=== PATIENT | female | born 2000 | race Caucasian/White ===

== ENCOUNTER → 2021-11-06 13:15 | Observation (INO) ==
[2021-11-06 11:54] LABS: Bilirubin,Urine Negative (Negative); Blood,Urine Small (Negative); Clarity,Urine Turbid (Clear); Color,Urine Yellow (Yellow); Glucose,Urine (UA) Normal (Normal); Ketones,Urine Negative (Negative); Leukocyte Esterase,Urine Large (Negative); Nitrite,Urine Negative (Negative); PH,Urine 6.5 pH Units (5.0-8.0); Protein,Urine 200 mg/dL (Neg-Trace); Specific Gravity,Urine 1.014 (1.010-1.025); Urobilinogen,Urine Normal (Normal)
[2021-11-06 12:03] LABS: Squamous Epithelial Cell,Urine Few per hpf (None-Few)
[2021-11-06 12:05] LABS: Bacteria,Urine Few per hpf (None-Few); WBC,Urine 50-100 per hpf (0-3)
[2021-11-07 06:33] LABS: Amphetamine Screen,Urine Negative ng/mL (Cutoff=1000); Barbiturate Screen,Urine Negative ng/mL (Cutoff=200)
[2021-11-07 06:34] LABS: Benzodiazepines Screen,Urine Negative ng/mL (Cutoff=300); Cannabinoid Screen,Urine Positive ng/mL (Cutoff = 50); Cocaine Screen,Urine Negative ng/mL (Cutoff= 300); Opiate Screen,Urine Negative ng/mL (Cutoff=300); Phencyclidine Screen,Urine Negative ng/mL (Cutoff=25)
== END | disposition home or self-care (01) ==
LOC: 1NENULAB
PROVIDERS: ADMIT Advanced Practice Midwife; ATTEND Advanced Practice Midwife

== ENCOUNTER 2022-03-17 18:17 | Inpatient (IN) ==
[~2022-03-17 18:17] MED LIST: Azithromycin 500 MG in 0.9 % Sodium Chloride 250 ML IVPB PRN; CeFAZolin 2,000 MG/120 ML BAG IVPB ONE; Famotidine 20 MG/2 ML VIAL IVP ONE; Metoclopramide 10 MG/2 ML VIAL IVP ONE; OXYTOCIN/RINGERS LACTATE 10 UNIT/166.6 ML BAG IVC ONE; Ringers Solution, Lactated 1,000 ML IVC SCH
[2022-03-17] MEDS ORDERED: Oxytocin 30 UNIT/503 ML BAG IVC SCH (18:30)
[2022-03-17 19:42] LABS: Basophils % 0.4 %; Eosinophils % 0.3 %; Hematocrit 37.6 % (35.3-44.9); Hemoglobin 12.2 g/dL (11.5-15.4); Immature Granulocytes % 2.1 % (0-4); Lymphocytes # 1.7 K/mcL (0.6-4.6); Lymphocytes % 15.7 %; Mean Corpuscular HGB Conc 32.4 g/dL (31.6-35.5); Mean Corpuscular Hemoglobin 30.5 pg (28.0-33.3); Mean Platelet Volume 10.1 fL (9.4-12.4); Monocytes # 0.6 K/mcL (0.0-1.3); Monocytes % 5.5 %; Neutrophils # 8.5 K/mcL (1.6-8.9); Platelet Count 192 K/mcL (140-400); White Blood Count 11.1 K/mcL (4.3-11.1)
[2022-03-17 20:21] LABS: Amphetamine Screen,Urine Negative ng/mL (Cutoff=1000); Barbiturate Screen,Urine Negative ng/mL (Cutoff=200); Benzodiazepines Screen,Urine Negative ng/mL (Cutoff=200); Cannabinoid Screen,Urine Positive ng/mL (Cutoff = 50); Cocaine Screen,Urine Negative ng/mL (Cutoff= 300); Opiate Screen,Urine Negative ng/mL (Cutoff=300); Phencyclidine Screen,Urine Negative ng/mL (Cutoff=25)
[2022-03-17] MEDS ORDERED: *HR* HYDROmorphone PF 0.5 MG/0.5 ML SYRINGE IVP PRN (20:43)
[2022-03-17] MEDS ORDERED: Naloxone 0.4 MG/ML INJ IVP PRN (20:43)
[2022-03-17] MEDS ORDERED: Promethazine 6.25 MG in Water for inj. (sterile) 20 ML IVPB PRN (20:43)
[2022-03-17] MEDS ORDERED: *HR* Nalbuphine 10 MG/ML AMPUL IV PRN (20:45)
[2022-03-17] MEDS ORDERED: *HR* FentaNYL (PF) 100 MCG/2 ML VIAL ONE (20:51)
[2022-03-17] MEDS ORDERED: Ondansetron 4 MG/2 ML VIAL ONE (20:51)
[2022-03-17] MEDS ORDERED: *HR* Phenylephrine 10 MG/ML VIAL ONE (20:51)
[2022-03-17] MEDS ORDERED: *HR* Morphine Sulfate/PF 10 MG/10 ML AMPUL ONE (20:51)
[2022-03-17] MEDS ORDERED: Ringers Solution, Lactated 1,000 ML ONE (21:22)
[2022-03-17] MEDS ORDERED: Acetaminophen IV 1,000 MG/100 ML BAG IVPB ONE (21:50)
[2022-03-17] MEDS ORDERED: Ketorolac 30 MG/ML VIAL ONE (22:03)
[2022-03-18] MEDS ORDERED: Ondansetron 4 MG/2 ML VIAL IVP PRN (00:58)
[2022-03-18] MEDS ORDERED: *HR* OxyCODONE Immed Rel 5 MG TABLET PO PRN (00:58)
[2022-03-18] MEDS ORDERED: Simethicone 80 MG TAB.CHEW PO PRN (00:58)
[2022-03-18] MEDS ORDERED: Oxytocin 30 UNIT/503 ML BAG IVC SCH (00:58)
[2022-03-18] MEDS ORDERED: Metoclopramide 10 MG/2 ML VIAL IVP PRN (00:58)
[2022-03-18] MEDS ORDERED: Ringers Solution, Lactated 1,000 ML IVC SCH (00:58)
[2022-03-18] MEDS: Ibuprofen 600 MG TABLET PO SCH ×3 (01:25→09:18)
[2022-03-18] MEDS: Acetaminophen 325 MG TABLET PO SCH ×3 (01:25→09:19)
[2022-03-18 06:15] LABS: Basophils # 0.1 K/mcL (0.0-0.2); Basophils % 0.3 %; Eosinophils % 0.3 %; Hematocrit 34.6 % (35.3-44.9); Immature Granulocytes % 1.3 % (0-4); Lymphocytes # 2.3 K/mcL (0.6-4.6); Lymphocytes % 14.9 %; Mean Corpuscular HGB Conc 31.8 g/dL (31.6-35.5); Mean Corpuscular Hemoglobin 30.2 pg (28.0-33.3); Mean Corpuscular Volume 95.1 fL (83.0-100.0); Mean Platelet Volume 10.1 fL (9.4-12.4); Monocytes # 0.6 K/mcL (0.0-1.3); Monocytes % 4.1 %; Neutrophils # 12.2 K/mcL (1.6-8.9); Platelet Count 168 K/mcL (140-400); Red Blood Count 3.64 M/mcL (3.82-4.97); Segmented Neutrophils % 79.1 %; White Blood Count 15.4 K/mcL (4.3-11.1)
[2022-03-18] MEDS ORDERED: Prenatal Vit/FA 1 EACH TABLET PO SCH (09:00)
[2022-03-18 12:09] VITALS: BP 99/60; PULSE 83; TEMP 98; O2SAT 99
== END 2022-03-18 17:57 | disposition home or self-care (01) | DRG 540 ==
LOC: 1NENULAB → 1NENUOBS 03-18 00:45
PROVIDERS: ADMIT Obstetrics & Gynecology; ATTEND Obstetrics & Gynecology